=== PATIENT | female | born 1990 | race African-American/Black ===

== ENCOUNTER 2019-09-17 12:23 | Emergency (ER) | payer SELFPAY ==
[2019-09-17 13:22] LABS: BHCG - Serum POSITIVE (NEGATIVE); Pregs Control Background? CLEAR/WHITE (CLR/WHITE); Pregs Control Bar Appear? YES (CONTROL BAR)
[2019-09-17 13:34] LABS: Hemoglobin 15.6 g/dL (12.0-16.0); Mean Corpuscular HGB CONC 34.1 g/dL (32.0-36.0); Mean Corpuscular Hemoglobin 32.8 pg (27.0-31.0); Mean Corpuscular Volume 96.1 fL (78.0-98.0); Mean Platelet Volume 8.5 fL (7.4-10.4); Platelet Count 149 thou/uL (130-400); RBC Distribution Width 14.1 % (11.5-14.5); Red Blood Cell (RBC) Count 4.75 mill/uL (4.20-5.40); White Blood Cell (WBC) Count 4.4 thou/uL (4.8-10.8)
[2019-09-17 13:44] LABS: ALT (SGPT) 40 U/L (8-55); AST (SGOT) 41 U/L (5-34); Albumin 4.2 g/dL (3.5-5.0); Alkaline Phosphatase 54 U/L (40-110); Anion Gap 12 mmol/L (10-20); BUN (Urea Nitrogen) 13 mg/dL (7.0-18.7); Bilirubin, Total 0.4 mg/dL (0.2-1.2); Calc. Creatinine Clearance 0 mL/min (70-130); Calcium 9.1 mg/dL (7.8-10.44); Carbon Dioxide 26 mmol/L (22-29); Chloride 102 mmol/L (98-107); Estimated GFR-MDRD 79; Globulin 3.7 g/dL (2.4-3.5); Glucose 144 mg/dL (70-105); Lipase 7 U/L (8-78); Potassium 3.1 mmol/L (3.5-5.1); Protein, Total 7.9 g/dL (6.0-8.3); Sodium 137 mmol/L (136-145)
[2019-09-17 13:48] LABS: Band 3 % (5-11); Lymphocytes 37 % (21-51); MDiff Complete? YES; Monocytes 19 % (0-10); Neutrophil 30 % (42-75); Platelet Morphology Comment Appears Adequate; Polychromasia SLIGHT = 2-3 cells (100X) (0-2/hpf); Reactive Lymphocytes 11 % (0-10)
[2019-09-17] MEDS ORDERED: Ondansetron ODT 4 MG TAB ONE (14:09)
[2019-09-17 14:33] LABS: Bilirubin Negative (Negative); Blood, Urine Negative (Negative); Clarity Turbid (Clear); Glucose, Urine (Dipstick) 30 mg/dL (Negative); Leukocyte 25 Leu/uL (Negative); Nitrite Negative (Negative); Protein, Urine (Dipstick) 200 mg/dL (Neg-Trace); RBC/HPF 0-3 HPF (0-3); Urobilinogen 3 mg/dL (Less than 2)
[2019-09-17 14:35] LABS: Bacteria/HPF 1+ HPF (None Seen)
== END 2019-09-17 15:06 | disposition home or self-care (01) ==
LOC: ERS 12:23
DX: O21.9 Vomiting of pregnancy, unspecified (principal); O99.330 Smoking (tobacco) complicating pregnancy, unspecified trimester; F17.200 Nicotine dependence, unspecified, uncomplicated
CPT/HCPCS: 36415; 80053; 81003; 81015; 83690; 84703; 85025; 87086; 99284; Q0162

== ENCOUNTER 2021-12-26 01:22 | Emergency (ER) | payer MEDICAID | END 2021-12-26 03:04 | disposition left against medical advice (07) | LOC: ERS 01:22 | DX: Z53.21 Procedure and treatment not carried out due to patient leaving prior to being seen by health care provider (principal) ==